=== PATIENT | female | born 1990 | race Caucasian/White ===

== ENCOUNTER 2017-10-29 09:57 | Emergency (ER) | payer OTHER | END 2017-10-29 11:27 | disposition home or self-care (01) | LOC: E/R 11:27 | DX: S99.922A Unspecified injury of left foot, initial encounter (principal); J45.909 Unspecified asthma, uncomplicated; X58.XXXA Exposure to other specified factors, initial encounter; Y92.9 Unspecified place or not applicable; Z87.891 Personal history of nicotine dependence | CPT/HCPCS: 73630; 73630-LT; 99283-25 ==